=== PATIENT | male | born 1945 ===

== ENCOUNTER 2018-01-23 07:37 | Emergency (ER) | payer BC ==
[2018-01-23 07:48] VITALS: BP 158/65
--- NOTE | 2018-01-23 08:03 | UC ---
Respiratory Complaint HPI - HPI Summary HPI Summary: 3 WEEKS OF PERSISTENT COUGH AND POSTNASAL DRAINAGE. TRIED ZYRTEC AND FLONASE IN CASE IT WAS ALLERGIES BUT THIS HAS NOT HELPED. DENIES NASAL CONGESTION, FEVER, SHORTNESS OF BREATH, SORE THROAT, EAR PAIN. DENIES WHEEZING. NONSMOKER. NOT WORSE WITH EXERTION. WORSE AT NIGHT. - History of Current Complaint Chief Complaint: UCRespiratory Stated Complaint: COUGH Time Seen by Provider: 01/23/18 07:53 Hx Obtained From: Patient Onset/Duration: Gradual Onset, Lasting Weeks, Still Present Timing: Constant Severity Initially: Moderate Severity Currently: Moderate Pain Intensity: 0 Pain Scale Used: 0-10 Numeric Character: Cough: Productive - WHITE PHLEGM Aggravating Factors: Nothing Alleviating Factors: Nothing Associated Signs And Symptoms: Negative: Dyspnea, Fever, Chills, Pleuritic Chest Pain, Wheezing, URI, Nasal Congestion - Allergies/Home Medications Allergies/Adverse Reactions: Allergies Allergy/AdvReac Type Severity Reaction Status Date / Time sulfamethoxazole Allergy Rash Verified 01/23/18 07:49 [From Bactrim] trimethoprim [From Bactrim] Allergy Rash Verified 01/23/18 07:49 Home Medications: Home Medications Atorvastatin* [Lipitor 20 MG*] 20 mg PO DAILY 01/23/18 [History Confirmed ] Cetirizine* [ZyrTEC 10 MG TAB*] 10 mg PO DAILY PRN 01/23/18 [History Confirmed 01/23/18] Fluticasone NASAL SPRAY 50MCG* [Flonase NASAL SPRAY 50MCG*] 2 spray BOTH NARES DAILY 01/23/18 [History Confirmed 01/23/18] Hydrochlorothiazide TAB* [Hydrodiuril TAB*] 25 mg PO DAILY 01/23/18 [History Confirmed 01/23/18] Lisinopril TAB* [Prinivil TAB 10 MG*] 40 mg PO DAILY 01/23/18 [History Confirmed 01/23/18] Multivitamin [Multivitamins] 1 cap PO DAILY 01/23/18 [History Confirmed 01/23/18 ] Potassium Chlor TAB* [Klor Con ER TAB 10 MEQ*] 30 meq PO DAILY 01/23/18 [ History Confirmed 01/23/18] amLODIPine TAB* [Norvasc 5 mg TAB*] 10 mg PO DAILY 07/24/18 [History Confirmed 01/23/18] PMH/Surg Hx/FS Hx/Imm Hx Cardiovascular History: Hypertension - Surgical History Surgical History: Yes Surgery Procedure, Year, and Place: lithotripsy - Family History Known Family History: Positive: Hypertension - Social History Alcohol Use: Rare Substance Use Type: None Smoking Status (MU): Never Smoked Tobacco Review of Systems Constitutional: Negative ENT: Other - POST NASAL DRAINAGE Respiratory: Cough Cardiovascular: Negative Gastrointestinal: Negative All Other Systems Reviewed And Are Negative: Yes Physical Exam Triage Information Reviewed: Yes Appearance: Well-Appearing, No Pain Distress, Well-Nourished Vital Signs: Initial Vital Signs Temp 99.6 F 01/23/18 07:45 Pulse 95 01/23/18 07:45 Resp 16 01/23/18 07:45 BP 158/65 01/23/18 07:45 Pulse Ox 96 01/23/18 07:45 Vital Signs Reviewed: Yes Eyes: Positive: Conjunctiva Clear ENT: Positive: Hearing grossly normal, Pharynx normal, TMs normal Neck: Positive: Supple, Nontender, No Lymphadenopathy Respiratory: Positive: No respiratory distress, No accessory muscle use, Rhonchi - RIGHT > LEFT, Wheezing - RIGHT > LEFT Cardiovascular Exam: Normal Abdomen Description: Positive: Soft Musculoskeletal: Positive: No Edema Neurological: Positive: Alert Psychological: Positive: Age Appropriate Behavior Skin: Negative: rashes UC Diagnostic Evaluation - Laboratory O2 Sat by Pulse Oximetry: 96 - Radiology Xray Interpretation: Positive (See Comments) - HYPERINFLATION, WHICH CAN BE SEEN WITH COPD OR REACTIVE AIRWAY DISEASE. NO ACTIVE CP DISEASE Radiology Interpretation Completed By: Radiologist Respiratory Course/Dx - Differential Dx/Diagnosis Provider Diagnoses: ACUTE BRONCHITIS WITH BRONCHOSPASM Discharge - Sign-Out/Discharge Documenting (check all that apply): Patient Departure - Discharge Plan Condition: Stable Disposition: HOME Prescriptions: Albuterol HFA INHALER* [Ventolin HFA Inhaler*] 2 puff INH Q4H PRN #1 mdi PRN Reason: Shortness Of Breath Azithromycin 500 mg PO DAILY #5 tab Codeine Phosphate/Guaifenesin [Codeine-Guaifen 10-100 mg/5 ml] 5 - 10 ml PO Q6H PRN #150 ml MDD 40ML PRN Reason: Cough predniSONE TAB* [Deltasone TAB*] 50 mg PO DAILY #5 tab Patient Education Materials: Acute Bronchitis (ED), Bronchospasm (ED) Referrals: Zeferino Veronica MD [Primary Care Provider] - If Needed Additional Instructions: XRAY TODAY SHOWS HYPERINFLATION BUT NO ACUTE DISEASE. YOUR SYMPTOMS MAY BE VIRALLY MEDIATED BUT GIVEN THE LENGTH OF TIME YOU HAVE BEEN ILL WE WILL COVER YOU WITH ANTIBIOTICS. IF YOU START THE MEDICINE BE SURE TO TAKE IT FOR THE FULL COURSE. REST, HYDRATE, OTC MEDS NEEDED. WILL ALSO TREAT WITH PREDNISONE AND ALBUTEROL TO HELP WITH AIRWAY INFLAMMATION AND COUGH MEDICINE. SEEK FOLLOW-UP WITH YOUR PCP IF YOU ARE NOT IMPROVING OVER THE NEXT 1- 2 WEEKS. YOUR BLOOD PRESSURE WAS ELEVATED TODAY (158/65). THIS MAY BE DUE TO YOUR ACUTE CONDITION. MONITOR AND FOLLOW-UP WITH YOUR PCP WITHIN 4 WEEKS IF IT HAS NOT RETURNED TO NORMAL. - Billing Disposition and Condition Condition: STABLE Disposition: Home
--- NOTE | 2018-01-23 08:23 | RAD ---
HISTORY: COUGH, RHONCHI RIGHT>LEFT COMPARISONS: None VIEWS: 4: Frontal dual-energy and lateral views of the chest. FINDINGS: CARDIOMEDIASTINAL SILHOUETTE: The cardiomediastinal silhouette is normal. YESENIA: The yesenia are normal. PLEURA: The costophrenic angles are sharp. No pleural abnormalities are noted. LUNG PARENCHYMA: There is hyperinflation with flattening of the diaphragm and expansion of the AP diameter of the chest. ABDOMEN: The upper abdomen is clear. There is no subphrenic gas. BONES AND SOFT TISSUES: No bone or soft tissue abnormalities are noted. OTHER: None. IMPRESSION: HYPERINFLATION, WHICH CAN BE SEEN WITH COPD OR REACTIVE AIRWAY DISEASE. NO ACTIVE CARDIOPULMONARY DISEASE.
== END 2018-01-23 08:55 | disposition home or self-care (01) ==
LOC: UCEAST 07:37
DX: J20.9 Acute bronchitis, unspecified (principal); I10 Essential (primary) hypertension; Z88.2 Allergy status to sulfonamides
CPT/HCPCS: 71046; 99202; G0463